=== PATIENT | female | born 1950 | race Caucasian/White ===

== ENCOUNTER → 2017-02-16 | Outpatient (CLI) | payer OTHER | LOC: BMCIMAGING 08:52 | PROVIDERS: ATTEND Specialist | DX: Z12.31 Encounter for screening mammogram for malignant neoplasm of breast (principal); Z80.3 Family history of malignant neoplasm of breast | CPT/HCPCS: G0202 ==

== ENCOUNTER → 2018-03-07 | Outpatient (CLI) | payer OTHER | LOC: BMCIMAGING 13:20 | PROVIDERS: ATTEND Internal Medicine | DX: Z12.31 Encounter for screening mammogram for malignant neoplasm of breast (principal) ==

== ENCOUNTER 2018-08-19 17:14 | Inpatient (IN) | payer OTHER ==
--- NOTE | 2018-08-19 17:38 | EDPHY ---
H & P Stated Complaint: Mechanical fall, R knee pain - Personal History Current Tetanus Diphtheria and Acellular Pertussis (TDAP): Yes - Medical/Surgical History Hx Asthma: No Hx Chronic Respiratory Disease: No Hx Diabetes: No Hx Cardiac Disease: No Hx Renal Disease: No Hx Cirrhosis: No Hx Alcoholism: No Hx HIV/AIDS: No Hx Splenectomy or Spleen Trauma: No Other PMH: anxiety - Social History Smoking Status: Former smoker Time Seen by Provider: 08/19/18 17:17 HPI/ROS: Chief complaint: Right knee injury History of present illness: This is a 67-year-old female who presents to the emergency department with EMS after sustaining a trip and fall injuring her right knee. She reports a mechanical type trip without preceding events such as syncope, she landed straight onto her right knee on a hard floor. Since then she has had pain in the knee. She is unable to move it or weight bear. No report of open wounds, no report of abnormal coolness or paresthesias in the leg. No report of trauma to other parts of the body. (Thom Kasper) - Physical Exam Exam: General: Alert, nontoxic. Skin: No open wounds to the right leg. Musculoskeletal: Obvious deformity noted to the anterior aspect of the right knee over the patella. She does not want range it secondary to pain. Vascular: DP and PT pulses 2+. Neurological: Sensation intact in the right lower extremity. (Thom Kasper) Constitutional: Initial Vital Signs Temperature (C) 36.7 C 08/19/18 17:26 Heart Rate 70 08/19/18 17:26 Respiratory Rate 18 08/19/18 17:26 Blood Pressure 164/83 H 08/19/18 17:26 O2 Sat (%) 100 08/19/18 17:26 O2 Delivery Mode Room Air Allergies/Adverse Reactions: bupropion [From Wellbutrin] Allergy (Severe, Verified 08/19/18 19:28) Hives erythromycin base Allergy (Severe, Verified 08/19/18 19:28) Hives Home Medications: Medication Instructions Recorded Acetaminophen [Tylenol ES 500 mg 1,000 mg PO Q6 PRN 08/19/18 (*)] Cholecalciferol Vit D3 [Vitamin D3 1,000 units PO DAILY 08/19/18 (*)] DESVENLAFAXINE SUCCINATE [Pristiq] 50 mg PO DAILY 08/19/18 Mometasone Furoate Nasal [Nasonex] 1 sprays EACHNARE DAILY PRN 08/19/18 Mometasone Furoate [Elocon] 1 ben TP DAILY PRN 08/19/18 Vitamin B Complex [Vitamin B 1 tab PO DAILY 08/19/18 Complex (OTC)] celeCOXIB [Celebrex (*)] 200 mg PO HS 08/19/18 Rosuvastatin Calcium [Crestor 40mg 40 mg PO HS 08/20/18 (*)] Medical Decision Making - Diagnostics Imaging: I viewed and interpreted images myself ED Course/Re-evaluation: Patient is discussed with my secondary supervising physician Dr. Geovanna Diaz. Patient presents to the emergency department with EMS after injuring her right knee. X-ray confirms a significant patellar fracture. Her leg is neurovascularly intact. I do not believe she will be able to get herself around at home on her own to perform ADLs. She is therefore admitted to the hospitalist team, Dr. Abbi King. I have consulted with Dr. Mejia's office, physician acquisitions assistant Chester who has seen the patient in the emergency department. The plan has been discussed with the patient who voiced understanding and agreement with it. (Thom Kasper) The patient was evaluated and managed by the physician acquisitions assistant. I have reviewed this chart and I agree with the findings and plan of care as documented , as indicated by my signature. I am the secondary supervising physician. ( Geovanna Diaz) Differential Diagnosis: Included but not limited to contusion, sprain or strain, bony fracture, dislocation (Thom Kasper) - Data Points Medications Given: Acetaminophen (Tylenol) 650 mg PO Q4HRS PRN PRN Reason: Pain, Mild/Fever, Can Take PO Stop: 02/15/19 21:17 Last Admin: 08/20/18 14:28 Dose: 650 mg Cefazolin Sodium/Dextrose (Ancef) 100 mls @ 200 mls/hr IV Q8H KALIE PRN Reason: Protocol Stop: 08/21/18 03:29 Last Admin: 08/20/18 18:24 Dose: 100 mls Sodium Chloride (Ns) 1,000 mls @ 75 mls/hr IV CONT KALIE Stop: 08/21/18 12:14 Last Admin: 08/20/18 17:36 Dose: 1,000 mls Miscellaneous Medication (Desvenlafaxine Succinate [Pristiq]) 50 mg PO DAILY [facility] Stop: 02/16/19 08:59 Last Admin: 08/20/18 15:35 Dose: 50 mg Ondansetron HCl (Zofran) 4 mg IVP Q4HRS PRN PRN Reason: Nausea/Vomiting, Can't Take PO Stop: 02/15/19 21:17 Last Admin: 08/20/18 14:25 Dose: 4 mg Ondansetron HCl (Zofran Odt) 4 mg PO Q4HRS PRN PRN Reason: Nausea/Vomiting, Use 1st Stop: 02/15/19 21:17 Last Admin: 08/20/18 18:25 Dose: 4 mg Oxycodone HCl (Oxycodone Ir) 5 - 10 mg PO Q4HRS PRN PRN Reason: Pain, Severe Able to Take PO Stop: 08/30/18 12:07 Last Admin: 08/20/18 14:29 Dose: 5 mg Oxycodone/Acetaminophen (Percocet 5/325) 1 - 2 tab PO Q4HRS PRN PRN Reason: Pain, Severe Able to Take PO Stop: 08/29/18 21:17 Last Admin: 08/20/18 19:08 Dose: 1 tab Promethazine HCl (Phenergan) 12.5 mg IVP Q4HRS PRN PRN Reason: Nausea/Vomiting, Can't Take PO Stop: 02/16/19 12:07 Last Admin: 08/20/18 20:09 Dose: 12.5 mg Rosuvastatin Calcium (Crestor) 40 mg PO HS [facility] Stop: 02/16/19 20:59 Last Admin: 08/20/18 20:10 Dose: Not Given Discontinued Medications Bupivacaine HCl (Sensorcaine 0.5% Vial) Confirm Administered Dose 30 ml .ROUTE .STK-MED ONE Stop: 08/20/18 10:40 Last Admin: 08/20/18 11:43 Dose: Not Given Bupivacaine HCl/Epinephrine Bitart (Bupivacaine/Epi) Confirm Administered Dose 30 ml .ROUTE .STK-MED ONE Stop: 08/20/18 10:41 Last Admin: 08/20/18 11:44 Dose: 30 ml Fentanyl (Sublimaze) 25 - 100 mcg IVP Q5M PRN PRN Reason: PACU, IMMEDIATE Pain control Stop: 08/20/18 12:07 Last Admin: 08/20/18 13:33 Dose: 50 mcg Hydromorphone HCl (Dilaudid) 0.1 - 0.4 mg IVP Q10M PRN PRN Reason: Pain *for PACU only* Stop: 08/20/18 13:50 Last Admin: 08/20/18 13:15 Dose: 0.4 mg Cefazolin Sodium/Dextrose (Ancef) 100 mls @ 200 mls/hr IV ONCALL ONE PRN Reason: Protocol Stop: 08/20/18 11:01 Last Admin: 08/20/18 10:54 Dose: 100 mls Ketorolac Tromethamine (Toradol) 15 mg IVP POSTOP ONE Stop: 08/20/18 12:09 Last Admin: 08/20/18 15:30 Dose: Not Given Ketorolac Tromethamine (Toradol) 15 mg IVP POSTOP ONE Stop: 08/20/18 15:01 Last Admin: 08/20/18 15:32 Dose: 15 mg Midazolam HCl (Versed) 2 mg IVP ONCALL ONE Stop: 08/20/18 10:39 Last Admin: 08/20/18 10:53 Dose: 2 mg Oxycodone/Acetaminophen (Percocet 5/325) 2 tab PO EDNOW ONE Stop: 08/19/18 17:59 Last Admin: 08/19/18 18:00 Dose: 2 tab Departure - Departure Disposition: [facility] Clinical Impression: Patellar fracture Qualifiers: Encounter type: initial encounter Fracture type: closed Fracture morphology: comminuted Fracture alignment: displaced Laterality: right Qualified Code(s): S82.041A - Displaced comminuted fracture of right patella, initial encounter for closed fracture Condition: Good
[2018-08-19] MEDS ORDERED: HYDROmorphONE/DILAUDID 2 MG/ML INJ IVP ONE (17:53)
[2018-08-19] MEDS ORDERED: OXYCODONE/APAP 5/325 TAB PO ONE (17:58)
--- NOTE | 2018-08-19 18:54 | PDCONSULT ---
Medical Unit Secretary Note: ORTHOPEDIC SURGERY CONSULT Chief complaint: Right knee injury ASSESSMENT: Right Knee Patella Fracture, Comminuted/Displaced PLAN: Admitted to Hospital/Medicine Service We will plan to do ORIF Right Patella tomorrow 08/19 at about 11am/12pm once OR available (Surgeon Dr. Tai Mejia) NPO after midnight Pain control per Hospital team Knee will need immobilized in full extension SUBJECTIVE: History of present illness: This is a 67-year-old female who presents to the emergency department with EMS after sustaining a trip and fall injuring her right knee. She reports a mechanical type trip without preceding events such as syncope, she landed straight onto her right knee on a hard floor. Since then she has had pain in the knee. She is unable to move it or weight bear. No report of open wounds, no report of abnormal coolness or paresthesias in the leg. No report of trauma to other parts of the body. (per Dr. Kasper note and confirmed by patient) - Personal History Current Tetanus Diphtheria and Acellular Pertussis (TDAP): Yes - Medical/Surgical History Hx Asthma: No Hx Chronic Respiratory Disease: No Hx Diabetes: No Hx Cardiac Disease: No Hx Renal Disease: No Hx Cirrhosis: No Hx Alcoholism: No Hx HIV/AIDS: No Hx Splenectomy or Spleen Trauma: No Other PMH: anxiety - Social History Smoking Status: Former smoker - Physical Exam Exam: General: Alert, nontoxic. Skin: No open wounds to the right leg. Musculoskeletal: Effusion noted around patella. Full ROM of ankle. Fixed extension at 10 degrees. Will not attempt ROM of knee to ensure ligament stability. Vascular: DP and PT pulses 2+. Neurological: Sensation intact in the right lower extremity. Initial Vital Signs Temperature (C) 36.7 C 08/19/18 17:26 Heart Rate 70 08/19/18 17:26 Respiratory Rate 18 08/19/18 17:26 Blood Pressure 164/83 H 08/19/18 17:26 O2 Sat (%) 100 08/19/18 17:26 O2 Delivery Mode Room Air Allergies/Adverse Reactions: bupropion [From Wellbutrin] Allergy (Verified 08/19/18 17:24) erythromycin base Allergy (Verified 08/19/18 17:24) Home Medications: Medication Instructions Recorded CeleBREX 08/19/18 Vytorin 10-10 mg Tablet 08/19/18
[2018-08-19] MEDS: OXYCODONE/APAP 5/325 TAB PO PRN (21:32)
--- NOTE | 2018-08-19 23:45 | GHP ---
DATE OF ADMISSION: 08/19/2018 CHIEF COMPLAINT: Status post fall with right patella fracture. HISTORY OF PRESENT ILLNESS: This is a 67-year-old female with minimal medical problems, who tripped and fell onto her knee. She sustained a fracture of her patella. [facility] will be going to [facility]. She denies any previous cardiac history. She denies any shortness of breath or angina-type sym ptoms when exerting herself. She can go up 2 flights of stairs. She denies any fevers or chills or any other active issues currently. REVIEW OF SYSTEMS: A 10-point review of systems was obtained and otherwise negative. PAST MEDICAL HISTORY: Hyperlipidemia and depression. MEDICATIONS: Reviewed. SOCIAL HISTORY: No smoking. Occasional alcohol. FAMILY HISTORY: Reviewed and noncontributory. PHYSICAL EXAMINATION: VITAL SIGNS: Afebrile, blood pressure is 144/79, heart rate 77, oxygen satura tion 94% on room air. GENERAL: The patient is well developed, in no apparent distress. HEENT: Non icteric sclerae. Extraocular movements intact. Moist mucous membranes. NECK: Supple. No thyromeg roddy. LUNGS: Good effort. Clear to auscultation bilaterally. CARDIOVASCULAR: Regular rate and rhy thm. No murmurs, gallops. ABDOMEN: Positive bowel sounds. Soft, nontender, nondistended. No hepa tosplenomegaly. EXTREMITIES: No clubbing, cyanosis, or edema. Right knee cap swollen. SKIN: With out rash, dry, intact. NEUROLOGIC: Alert and oriented x3. Moving all 4 extremities equally. PSYCH : Normal mood and affect. LABS: No labs. Knee x-ray shows comminuted and displaced right patella fracture. ASSESSMENT: This is a 67-year-old female, with a patellar fracture. PLAN: She will be operated on tomorrow. Continue pain control. /[id number]/MODL
[2018-08-20] MEDS: Desvenlafaxine Succinate [Pristiq] 50 MG PO SCH ×2 (08:35→15:35)
--- NOTE | 2018-08-20 08:40 | HOSPPROG ---
Hospitalist Progress Note Assessment/Plan: [facility] Patient Name: LUDIN WALDRON Rpt#: [id number] Unit Number: [id number] Attending/ER Physician: Abbi King MD Patient Type: ADM Radha Adm Date/Source: 08/19/18 EMR Discharge Date: Primary Carrier: MEDICARE OUTPATIENT Patient is a 67 y/o female who tripped and fell on her knee. She sustained a displaced r patellar fx. First encounter, chart reviewed. *right patellar fx -OR today -she will need to work w PT to do stairs, she has multiple steps in her home *HLD -statin *depression -stable *Plan: OR today, she will see PT and OT later Subjective: Tari said pain is well managed as long as she doesn't move. Objective: Vital Signs Temp Pulse Resp BP Pulse Ox 36.4 C 71 13 114/62 92 08/20/18 07:58 08/20/18 07:58 08/20/18 07:58 08/20/18 07:58 08/20/18 07:58 08/19/18 08/20/18 08/21/18 05:59 05:59 05:59 Output Total 1300 250 Balance -1300 -250 - Physical Exam Constitutional: no apparent distress, appears nourished Eyes: PERRL Ears, Nose, Mouth, Throat: hearing normal Cardiovascular: regular rate and rhythym Respiratory: no respiratory distress Gastrointestinal: normoactive bowel sounds Skin: warm Musculoskeletal: other (right leg in an immobilizer, right knee area w some swelling) Neurologic: AAOx3 Psychiatric: interacting appropriately ICD10 Worksheet Patient Problems: Problems Problem Status Onset Patellar fracture Acute
--- NOTE | 2018-08-20 09:07 | ASMTCMCOM ---
CM Note CM Note Notes: 67yo female admitted after a fall and R Patellar fx. She has a Hx of HLD and depression. She lives with her . to have surgery today. Therapies to eval after surgery to determine discharge needs. CM to follow. Date Signed: 08/20/2018 09:06 AM Electronically Signed By:Christina Cannon LCSW
--- NOTE | 2018-08-20 10:27 | PDMN ---
Medical Necessity Medical necessity: [facility] Musculoskeletal Disease GR yo w/ acute R patellar fracture from mechanical fall. Surgery consult. Plan for ORIF1. PT/OT post op. Pt will require 2MN for planned ORIF, pain management, PT/ OT.
[2018-08-20] MEDS ORDERED: ceFAZolin 2 GM/DEXTROSE 100 ML IV ONE (10:32)
[2018-08-20] MEDS ORDERED: fentaNYL 250 MCG/5 ML INJ ONE (10:35)
[2018-08-20] MEDS ORDERED: PROPOFOL/EMULSION 500 MG/50 ML BOTTLE IV ONE (10:36)
[2018-08-20] MEDS ORDERED: CEFAZOLIN 2 GM/DEXTROSE/100 ML BAG IV ONE (10:36)
[2018-08-20] MEDS ORDERED: MIDAZOLAM 2 MG/2 ML VIAL IVP ONE (10:38)
[2018-08-20] MEDS ORDERED: BUPIVACAINE 0.5% 30 ML SDV ONE (10:39)
[2018-08-20] MEDS ORDERED: BUPIVACAINE/EPI 0.5% 30 ML SDV ONE (10:40)
[2018-08-20] MEDS ORDERED: MIDAZOLAM 2 MG/2 ML VIAL ONE (10:46)
--- NOTE | 2018-08-20 10:50 | PDANEPAE ---
ANE History of Present Illness 67 year old female for ORIF right patella fracture. History of sleep apnea, depression and anxiety. ANE Past Medical History - Cardiovascular History Hx Hypertension: No Hx Arrhythmias: No Hx Chest Pain: No Hx Coronary Artery / Peripheral Vascular Disease: No Hx CHF / Valvular Disease: No Hx Palpitations: No - Pulmonary History Hx COPD: No Hx Asthma/Reactive Airway Disease: No Hx Recent Upper Respiratory Infection: No Hx Oxygen in Use at Home: No Hx Sleep Apnea: Yes Sleep Apnea Screening Result - Last Documented: Positive - Endocrine History Hx Diabetes: No - Chronic Pain History Chronic Pain: No ANE Review of Systems Review of systems is: negative Review of Systems: ANE Patient History - Allergies Allergies/Adverse Reactions: bupropion [From Wellbutrin] Allergy (Severe, Verified 08/19/18 19:28) Hives erythromycin base Allergy (Severe, Verified 08/19/18 19:28) Hives - Home Medications Home Medications: Acetaminophen [Tylenol ES 500 mg (*)] 1,000 mg PO Q6 PRN 08/19/18 [Last Taken Unknown] Cholecalciferol Vit D3 [Vitamin D3 (*)] 1,000 units PO DAILY 08/19/18 [Last Taken 08/17/18] DESVENLAFAXINE SUCCINATE [Pristiq] 50 mg PO DAILY 08/19/18 [Last Taken 08/19/18 09:00] Ezetimibe/Simvastatin [Vytorin 10-20 mg Tablet] 1 tab PO HS 08/19/18 [Last Taken 08/18/18 22:00] Mometasone Furoate Nasal [Nasonex] 1 sprays EACHNARE DAILY PRN 08/19/18 [Last Taken 08/17/18] Mometasone Furoate [Elocon] 1 ben TP DAILY PRN 08/19/18 [Last Taken 08/18/18] Vitamin B Complex [Vitamin B Complex (OTC)] 1 tab PO DAILY 08/19/18 [Last Taken 08/17/18] celeCOXIB [Celebrex (*)] 200 mg PO HS 08/19/18 [Last Taken 08/18/18 22:00] - NPO status NPO Since - Liquids (Date): 08/20/18 NPO Since - Liquids (Time): 00:00 NPO Since - Solids (Date): 08/20/18 NPO Since - Solids (Time): 00:00 - Smoking Hx Smoking Status: Former smoker ANE Labs/Vital Signs - Vital Signs Blood Pressure: 120/65 Heart Rate: 71 Respiratory Rate: 13 O2 Sat (%): 92 Height: 152.4 cm Weight: 71.668 kg ANE Physical Exam - Airway Neck exam: FROM Mallampati Score: Class 2 Mouth exam: normal dental/mouth exam - Pulmonary Pulmonary: no respiratory distress - Cardiovascular Cardiovascular: regular rate and rhythym - ASA Status ASA Status: II, III, E ANE Anesthesia Plan Anesthesia Plan: GA w LMA
[2018-08-20] MEDS ORDERED: LR 500 ML IV PRN (11:07)
[2018-08-20] MEDS ORDERED: fentaNYL 100 MCG/2 ML INJ IVP PRN (11:07)
[2018-08-20] MEDS ORDERED: DEXAMETHASONE 4 MG/ML VIAL IVP PRN (11:07)
[2018-08-20] MEDS ORDERED: LABETALOL HCL 20 MG/4 ML INJ IVP PRN (11:07)
[2018-08-20] MEDS ORDERED: NALOXONE HCL 0.4 MG/ML INJ IVP PRN (11:07)
[2018-08-20] MEDS ORDERED: ALBUTEROL 3 ML DEYVIAL IH PRN (11:07)
[2018-08-20] MEDS ORDERED: KETOROLAC 15 MG/1 ML SDV IVP ONE ×2 (12:08→15:00)
[2018-08-20] MEDS ORDERED: HYDROmorphONE/DILAUDID 2 MG/ML INJ ONE ×2 (12:12→12:42)
[2018-08-20] MEDS ORDERED: NS 1,000 ML IV SCH (12:15)
--- NOTE | 2018-08-20 12:19 | POSTANESTH ---
Post Anesthetic Evaluation Cardiovascular Status: Normal, Stable Respiratory Status: Normal, Stable Level of Consciousness/Mental Status: Can Participate in Eval Pain Control: Adequate, Prn Tx Ordered Nausea/Vomiting Control: Adequate, Prn Tx Ordered Complications Possibly Related to Anesthesia: None Noted
[2018-08-20] MEDS: HYDROmorphONE/DILAUDID 2 MG/ML INJ IVP PRN ×5 (12:27→13:15)
[2018-08-20] MEDS ORDERED: HYDROmorphONE/DILAUDID 1 MG/ML INJ IVP PRN ×2 (12:36→12:47)
[2018-08-20] MEDS ORDERED: fentaNYL 100 MCG/2 ML INJ ONE (13:27)
[2018-08-20] MEDS: ONDANSETRON 4 MG/2 ML VIAL IVP PRN (14:25)
[2018-08-20] MEDS: ACETAMINOPHEN 325 MG TAB PO PRN (14:28)
[2018-08-20] MEDS: oxyCODONE IR 5 MG TAB PO PRN (14:29)
[2018-08-20] MEDS: ceFAZolin 2 GM/DEXTROSE 100 ML IV SCH (18:24)
[2018-08-20] MEDS: ONDANSETRON DISINTEGRATING 4 MG TAB PO PRN (18:25)
[2018-08-20] MEDS: OXYCODONE/APAP 5/325 TAB PO PRN ×2 (18:26→19:08)
--- NOTE | 2018-08-20 18:46 | GOP ---
DATE OF OPERATION: 08/19/2018 SURGEON: Tai Mejia MD ENVIRONMENTAL LEAD: Chester Menard PA-C. ANESTHESIA: General. PREOPERATIVE DIAGNOSIS: Comminuted fracture, right patella. POSTOPERATIVE DIAGNOSIS: Comminuted fracture, right patella. PROCEDURE PERFORMED: Open reduction, internal fixation, comminuted fracture, right patella. FINDINGS: DESCRIPTION OF PROCEDURE: The patient was taken to the operating room, administered general anesthes ia, placed in a supine position. The right lower extremity was prepped and draped in normal sterile fashion. Esmarch exsanguination was performed followed by elevation of thigh cuff to 275 mmHg pressu re. Midline incision was made through dermal, subcutaneous tissues. The fracture was cleaned up. T horough lavage performed with saline. A curette was used to remove clot of blood. The fracture was reduced and secured temporarily with several clamps and then K-wires were driven from distal to proxi mal. The tension band wire was passed underneath the proximal K-wires using a 14-gauge angiocath. T his was figure-eighted over the anterior aspect of the patella and then brought underneath the infrap atellar tendon using a 14-gauge Angiocath to pass the tension band wire. The tension band wire was b rought back to itself in tension. A circumferential stitch was passed into the fascia layer around t he patella because of the peripheral comminution. This was a #2 FiberWire suture. It was brought ba ck around to itself and secured laterally. The medial and lateral retinacular tears were then reappr oximated with #1 Vicryl sutures. The dorsal periosteum and fascia were closed with a #1 Vicryl sutur e. The irrigation was performed with normal saline. The deep and subcutaneous tissues were infiltra dheeraj with the Marcaine solution. Closure was performed with the subcutaneous sutures with a #2-0 V-Lo c suture followed by closure of the skin with mili. A sterile compression dressing applied follow ed by a hinged knee brace locked in extension. The patient tolerated procedure well, was transferred back to recovery in stable condition. COMPLICATIONS: None. /[id number]/MODL
[2018-08-20] MEDS: ROSUVASTATIN CALCIUM 40 MG TAB PO SCH ×2 (20:09→20:10)
[2018-08-20] MEDS: PROMETHAZINE HCL 25 MG/ML INJ IVP PRN (20:09)
[2018-08-20] MEDS ORDERED: EZETIMIBE 10 MG TAB PO SCH (21:00)
[2018-08-20] MEDS ORDERED: ATORVASTATIN CALCIUM 10 MG TAB PO SCH (21:00)
[2018-08-21] MEDS: PROMETHAZINE HCL 25 MG/ML INJ IVP PRN (00:40)
[2018-08-21] MEDS: oxyCODONE IR 5 MG TAB PO PRN ×3 (00:41→21:18)
[2018-08-21] MEDS: ceFAZolin 2 GM/DEXTROSE 100 ML IV SCH (03:23)
[2018-08-21] MEDS: HYDROmorphONE/DILAUDID 1 MG/ML INJ IVP PRN ×2 (03:30→07:47)
[2018-08-21] MEDS: ACETAMINOPHEN 325 MG TAB PO PRN (05:53)
[2018-08-21] MEDS ORDERED: SCOPOLAMINE HYDROBROMIDE 1 MG/3 DAYS PATCH TD SCH (07:45)
--- NOTE | 2018-08-21 07:48 | SOAPPROG ---
[facility] Progress Note Assessment/Plan: Assessment: Right Knee, Patella Fracture, POD #1 s/p ORIF Right Patella Plan: Discharge to SNF once approved today 08/21 vs tomorrow 08/22 WBAT with ROM Brace locked at 0 08/21/18 07:45 Subjective: Pain has been moderate to sever. Mild nausea last night. Overal in good spirit. Denies SOB, CP Objective: Vital Signs Temp Pulse Resp BP Pulse Ox 36.8 C 87 16 152/87 H 91 L 08/21/18 00:00 08/21/18 00:00 08/21/18 00:00 08/21/18 00:00 08/21/18 00:00 Laboratory Results 08/21/18 04:20 08/21/18 04:20 08/20/18 08/21/18 08/22/18 05:59 05:59 05:59 Intake Total 2546 1250 Output Total 1300 1975 500 Balance -1300 571 750 PHYSICAL EXAM RLE Dressing and brace intact. Full DF/PF and wiggles toes well. Calf soft non- tender. Distal Neurovasculature intact - Pending Discharge Pending Discharge Within 24 Hours: Yes Pending Discharge Date: 08/22/18 Pending Discharge Time: 11:00 ICD10 Worksheet Patient Problems: Problems Problem Status Onset Patellar fracture Acute
--- NOTE | 2018-08-21 08:39 | HOSPPROG ---
Hospitalist Progress Note Assessment/Plan: [facility] Patient Name: LUDIN WALDRON Rpt#: [id number] Unit Number: [id number] Attending/ER Physician: Abbi King MD Patient Type: ADM Radha Adm Date/Source: 08/19/18 EMR Discharge Date: Primary Carrier: MEDICARE OUTPATIENT Patient is a 67 y/o female who tripped and fell on her knee. She sustained a displaced r patellar fx. *right patellar fx -s/p ORIF -had some significant pain last night, but better today. *HLD -statin *depression -stable *dvt prophylaxis: LMWH *Plan: PT and OT, will see if she needs a SNF vs home w home care. Subjective: Tari says she is having a hard time getting comfortable in the chair. Slept well overall. Objective: Vital Signs Temp Pulse Resp BP Pulse Ox 36.3 C 72 12 128/65 H 97 08/21/18 07:56 08/21/18 07:56 08/21/18 07:56 08/21/18 07:56 08/21/18 07:56 Laboratory Results 08/21/18 04:20 08/21/18 04:20 08/20/18 08/21/18 08/22/18 05:59 05:59 05:59 Intake Total 3706 1250 Output Total 1300 1975 500 Balance -1300 571 750 - Physical Exam Constitutional: uncomfortable Eyes: PERRL Ears, Nose, Mouth, Throat: hearing normal Cardiovascular: regular rate and rhythym Respiratory: no respiratory distress Skin: warm Musculoskeletal: generalized weakness, other (right knee w blanca wraps, brace in place) Neurologic: AAOx3 Psychiatric: interacting appropriately ICD10 Worksheet Patient Problems: Problems Problem Status Onset Patellar fracture Acute
[2018-08-21] MEDS: OXYCODONE/APAP 5/325 TAB PO PRN ×4 (08:58→21:18)
[2018-08-21] MEDS: ONDANSETRON 4 MG/2 ML VIAL IVP PRN (08:58)
[2018-08-21] MEDS: Desvenlafaxine Succinate [Pristiq] 50 MG PO SCH (08:58)
[2018-08-21] MEDS ORDERED: MAGNESIUM HYDROXIDE 30 ML UDCUP PO PRN (09:14)
[2018-08-21] MEDS ORDERED: BISACODYL 10 MG SUPP PR PRN (09:14)
[2018-08-21] MEDS ORDERED: LACTULOSE 20 GM/30 ML UDCUP PO PRN (09:14)
[2018-08-21] MEDS: ENOXAPARIN 40 MG/0.4 ML SYR SC SCH ×2 (11:25→17:05)
[2018-08-21] MEDS: POLYETHYLENE GLYCOL 3350 17 GM PKT PO SCH ×2 (11:26→17:01)
[2018-08-21] MEDS: FAMOTIDINE 20 MG TAB PO SCH (17:05)
[2018-08-21] MEDS: ROSUVASTATIN CALCIUM 40 MG TAB PO SCH (20:04)
[2018-08-21] MEDS: SENNOSIDES/DOCUSATE SODIUM TAB PO SCH (20:04)
[2018-08-22] MEDS: oxyCODONE IR 5 MG TAB PO PRN (01:23)
[2018-08-22] MEDS: OXYCODONE/APAP 5/325 TAB PO PRN ×2 (06:28→12:24)
[2018-08-22] MEDS: ONDANSETRON DISINTEGRATING 4 MG TAB PO PRN (06:30)
[2018-08-22 07:40] VITALS: BP 141/82
[2018-08-22] MEDS: POLYETHYLENE GLYCOL 3350 17 GM PKT PO SCH (08:43)
[2018-08-22] MEDS: Desvenlafaxine Succinate [Pristiq] 50 MG PO SCH (08:43)
[2018-08-22] MEDS: SENNOSIDES/DOCUSATE SODIUM TAB PO SCH (08:43)
[2018-08-22] MEDS: ENOXAPARIN 40 MG/0.4 ML SYR SC SCH (08:43)
[2018-08-22] MEDS: FAMOTIDINE 20 MG TAB PO SCH (08:44)
--- NOTE | 2018-08-22 09:23 | SOAPPROG ---
[facility] Progress Note Assessment/Plan: Assessment: Right Knee, Patella Fracture, POD #2 s/p ORIF Right Patella Plan: Discharge to Home with Home Health once approved today 08/22 WBAT with ROM Brace locked at 0 08/22/18 09:21 Subjective: Pain much better controlled. nausea much better controlled with scopalamine patch. She has been ambulating well and in good spirits. Denies CP or SOB Objective: Vital Signs Temp Pulse Resp BP Pulse Ox 36.8 C 80 16 141/82 H 93 08/22/18 07:39 08/22/18 07:39 08/22/18 07:39 08/22/18 07:39 08/22/18 07:39 Laboratory Results 08/21/18 04:20 08/21/18 04:20 08/21/18 08/22/18 08/23/18 05:59 05:59 05:59 Intake Total 2546 2650 Output Total 1975 2200 Balance 571 450 PE RLE Dressing clean and intact. ROM brace present and functioning wel at 0 degrees. 5 /5 DF/PF. Wiggles toes well. - Pending Discharge Pending Discharge Within 24 Hours: Yes Pending Discharge Date: 08/23/18 Pending Discharge Time: 11:00 ICD10 Worksheet Patient Problems: Problems Problem Status Onset Patellar fracture Acute
--- NOTE | 2018-08-22 11:31 | HOSPPROG ---
Hospitalist Progress Note Assessment/Plan: [facility] Patient Name: LUDIN WALDRON Rpt#: [id number] Unit Number: [id number] Attending/ER Physician: Abbi King MD Patient Type: ADM Radha Adm Date/Source: 08/19/18 EMR Discharge Date: Primary Carrier: MEDICARE OUTPATIENT Patient is a 67 y/o female who tripped and fell on her knee. She sustained a displaced r patellar fx. *right patellar fx -s/p ORIF -WBAT with brace locked to 0 *HLD -statin *depression -stable *dvt prophylaxis: LMWH *Plan: dc to SNF either today or tomorrow Subjective: Kiki is feeling the knee pain a bit more today. Objective: Vital Signs Temp Pulse Resp BP Pulse Ox 36.8 C 80 16 141/82 H 93 08/22/18 07:39 08/22/18 07:39 08/22/18 07:39 08/22/18 07:39 08/22/18 07:39 Laboratory Results 08/21/18 04:20 08/21/18 04:20 08/21/18 08/22/18 08/23/18 05:59 05:59 05:59 Intake Total 8409 2650 Output Total 1975 2200 Balance 571 450 - Physical Exam Constitutional: uncomfortable Eyes: PERRL Ears, Nose, Mouth, Throat: moist mucous membranes Respiratory: no respiratory distress Skin: warm, other (right knee with blanca wraps) Musculoskeletal: generalized weakness Neurologic: AAOx3 Psychiatric: interacting appropriately ICD10 Worksheet Patient Problems: Problems Problem Status Onset Patellar fracture Acute
--- NOTE | 2018-08-22 11:49 | PDIAF ---
- Diagnosis Diagnosis: r patellar fx s/p ORIF Code Status: Full Code - Medication Management Discharge Medications: electronically signed and located in the Home Medication List. - Orders Services needed: Physical Therapy, Occupational Therapy Diet Recommendation: no restrictions on diet Additional Instructions: Keep Brace on at all times with 0 extension and 0 flexion Weight Bearing as tolerated with us of walker/crutches Ice, elevate as needed Pain medications prescribed. Continue all home medications as normal Keep dressing intact and dry Follow-up 10-14 days at [facility] with Chester Menard PA-C Please call our clinic to confirm date/time of appointment Continue Lovenox for next 12 days - Labs/Radiology BMP Date: 08/25/18 CBC w/diff Date: 08/25/18 - Follow Up Care Current Providers and Referrals: Patient,NotPresent [Unknown] - As per Instructions Tai Mejia MD [Medical Doctor] - As per Instructions
--- NOTE | 2018-08-22 13:12 | GDS ---
DISCHARGE DIAGNOSES: 1. Right patellar fracture status post open reduction and internal fixation. 2. Hyperlipidemia. 3. Depression. CONSULTATION: Chester Menard PA-C, with Dr. Tai Mejia. HISTORY OF PRESENT ILLNESS: Briefly, the patient is a 67-year-old woman without any significant health history who tripped and fell onto her knee. She sustained a fracture to her patella. She had an ORIF done with Dr. Mejia. She has done well with the surgery. She [place] [facility], [facility], for rehabilitation. HOSPITAL COURSE BY PROBLEM: 1. Right patella fracture status post ORIF. She can be weightbearing as tolerated with the brace locked at 0. 2. Hyperlipidemia. Statin therapy. 3. Depression, stable. 4. DVT prophylaxis on low molecular weight heparin. DISCHARGE CONDITION: Stable. VITAL SIGNS: Blood pressure is 141/82, heart rate of 80, respiratory rate of 16, O2 saturation on 1 L 92%. Temperature is 36.2 Celsius. MEDICATIONS AT DISCHARGE: Please see the EMR. DISCHARGE INSTRUCTIONS: 1. To follow up with Dr. Mejia in the next 10-14 days. 2. To elevate her right leg. 3. Weightbearing as tolerated with brace on at all times with 0 extension, 0 flexion. /[id number]/MODL MTDD
--- NOTE | 2018-08-22 21:31 | ASMTLACE ---
LACE Length of stay for Answers: 4-6 days current admission Acuity / Level of Answers: Yes Care: Did the patient have an inpatient admission? # of Emergency department Answers: 1-2 visits in the last 6 months Social determinants Answers: Mental health diagnosis (anxiety, depression, pers onality disorders, etc.) Score: 11 Date Signed: 08/22/2018 01:44 PM Electronically Signed By:AYAZ Romo
--- NOTE | 2018-08-22 21:32 | ASMTCMCOM ---
CM Note CM Note Notes: Pt medically stable for d/c to SNF and chooses [facility]. Orders sent in [employer]. BRICE Alvarado called report. WC pickup arranged by Traci. Date Signed: 08/22/2018 01:45 PM Electronically Signed By:AYAZ Romo
--- NOTE | 2018-08-23 09:11 | ASDISCHSUM ---
Discharge Information Plan Status: Medically Cleared to Leave: Discharge Date:08/22/2018 01:38 PM CM D/C Disposition: ADT D/C Disposition:Snf Facility Projected Discharge Date:08/22/2018 11:00 AM Transportation at D/C: Discharge Delay Reason: Follow-Up Date:08/22/2018 11:00 AM Discharge Slot: Final Diagnosis:R Patellar fx Placement Information Referral Type:*Jail/SNF Referral ID:[id number] Provider Name:[facility] Address 1:[address] Address 2: City:[place] Selection Factors: State:[place] Patient Contact Information Contact Name:JOHNIE Relationship:Friend Address:[address] Work Phone: [facility]:[place]QU[place] Alternate Phone: State/Zip Code:[place] [address] Email: Financial Information Financial Class:Medicare Primary Plan Desc:MEDICARE INPATIENT Primary Plan Number:[id number] Secondary Plan Desc: Secondary Plan Number: Assessment Information [facility] CM Progress Note CM Note CM Note Notes: 67yo female admitted after a fall and R Patellar fx. She has a Hx of HLD and depression. She lives with her . to have surgery today. Therapies to eval after surgery to determine discharge needs. CM to follow. Date Signed: 08/20/2018 09:06 AM Electronically Signed By:Christina Cannon LCSW LACE LACDenis Length of stay for Answers: 4-6 days current admission Acuity / Level of Answers: Yes Care: Did the patient have an inpatient admission? # of Emergency department Answers: 1-2 visits in the last 6 months Social determinants Answers: Mental health diagnosis (anxiety, depression, pers onality disorders, etc.) Score: 11 Date Signed: 08/22/2018 01:44 PM Electronically Signed By:AYAZ Romo [facility] CM Progress Note CM Note CM Note Notes: Pt medically stable for d/c to SNF and chooses [facility]. Orders sent in [employer]. BRICE Alvarado called report. WC pickup arranged by Traci. Date Signed: 08/22/2018 01:45 PM Electronically Signed By:AYAZ Romo Intervention Information Intervention Type:*Incorrect Registration Date of Service:08/20/2018 09:23 AM Patient Type:Observation Staff Member:Guadalupe Branham Hours: Discipline: Severity: Comment: Intervention Type:*IM-Signed Date of Service:08/22/2018 12:26 PM Patient Type:Inpatient Staff Member:Annalisa Torrez Hours: Discipline: Severity: Comment:
[2018-08-24] MEDS ORDERED: PATCH REMOVAL 1 EA PATCH TD SCH (07:37)
== END 2018-08-22 13:38 | DRG 517 ==
LOC: EDUNIT# → F3N 20:20 → OBSVTOIN 21:20
PROVIDERS: ADMIT Internal Medicine; ATTEND Internal Medicine
PROC: 0QSD04Z Reposition Right Patella with Internal Fixation Device, Open Approach (ICD-10-PCS; principal; 2018-08-19)
DX: S82.041A Displaced comminuted fracture of right patella, initial encounter for closed fracture (principal); E78.5 Hyperlipidemia, unspecified; F32.9 Major depressive disorder, single episode, unspecified; W01.0XXA Fall on same level from slipping, tripping and stumbling without subsequent striking against object, initial encounter; Y92.018 Other place in single-family (private) house as the place of occurrence of the external cause; Z87.891 Personal history of nicotine dependence
CPT/HCPCS: 97116-GP; 97161-GP; 97165-GO; 97530-GP; 97535-GO; C1713; G8978-GP-CJ; G8979-GP-CI; G8980-GP-CI; G8987-GO-CK; G8988-GO-CJ; J0690; J1170; J1650; J1885; J2250; J2405; J2550; J2704; J3010; L1832